=== PATIENT | female | born 1965 | race Caucasian/White ===

== ENCOUNTER 2023-09-26 11:01 | Emergency (ER) | payer BC ==
[2023-09-26 11:51] LABS: Hematocrit 43.1 % (36.0-47.0); Hemoglobin 13.9 g/dL (12.0-16.0); Manual Diff?? YES; Mean Corpuscular HGB CONC 32.3 g/dL (32.0-36.0); Mean Corpuscular Hemoglobin 28.2 pg (27.0-31.0); Mean Corpuscular Volume 87.4 fl (78.0-98.0); Mean Platelet Volume 9.3 fL (7.4-10.4); Platelet Count 410 10x3/uL (130-400); RBC Distribution Width 14.6 % (11.5-14.5); Red Blood Cell (RBC) Count 4.93 mill/uL (4.20-5.40); White Blood Cell (WBC) Count 29.1 10x3/uL (4.8-10.8)
[2023-09-26] MEDS ORDERED: Dexamethasone 4 MG TAB ONE (11:52)
[2023-09-26 11:55] LABS: Delete Auto Diff?? YES
[2023-09-26] MEDS ORDERED: Ipratropium/Albuterol 3 ML NEB ONE (12:01)
[2023-09-26 12:15] LABS: ALT (SGPT) 14 U/L (8-55); AST (SGOT) 12 U/L (5-34); Albumin 4.1 g/dL (3.5-5.0); Alkaline Phosphatase 118 U/L (40-110); Anion Gap 15 mmol/L (10-20); BUN (Urea Nitrogen) 13 mg/dL (9.8-20.1); Bilirubin, Total 0.6 mg/dL (0.2-1.2); Calc. Creatinine Clearance 0 mL/min (70-130); Calcium 9.1 mg/dL (7.8-10.44); Carbon Dioxide 22 mmol/L (22-29); Chloride 101 mmol/L (98-107); Estimated GFR 76; Globulin 2.6 g/dL (2.4-3.5); Glucose 135 mg/dL (70-105); Potassium 4.5 mmol/L (3.5-5.1); Protein, Total 6.7 g/dL (6.0-8.3); Sodium 133 mmol/L (136-145)
[2023-09-26 12:24] LABS: Band 2 % (5-11); Lymphocytes 6 % (21-51); Monocytes 2 % (0-10); Neutrophil 90 % (42-75)
[2023-09-26 12:25] LABS: Ovalocytes MODERATE= 6-15 cells (100X) (0-1/hpf); Platelet Adequacy Comment Appears Adequate
[2023-09-26] MEDS ORDERED: Oxymetazoline HCl 0.05% (30 ML BOT) ONE (12:32)
== END 2023-09-26 12:55 | disposition home or self-care (01) ==
LOC: ERS 11:01
DX: J11.1 Influenza due to unidentified influenza virus with other respiratory manifestations (principal); J32.9 Chronic sinusitis, unspecified; D72.829 Elevated white blood cell count, unspecified
CPT/HCPCS: 36415; 71045; 80053; 83605; 85025; J7620; J8540